=== PATIENT | female | born 1955 | race Caucasian/White ===

== ENCOUNTER 2022-01-03 09:04 | Outpatient (RCR) | payer BC, SELFPAY ==
--- NOTE | 2022-01-03 10:04 | PTOPEVAL ---
Thank you for referring Debra Arce to [facility].? The patient is scheduled to be seen for therapy? __1__x/week for 6 visits. Please review, sign, date and return this plan of care LUIS ENRIQUE. I agree with and certify that the following plan of care is medically necessary. Referring Physician Date Admitting Provider: Attending Provider: Nathalia Knapp, Referring Provider: *PT Outpatient Evaluation Start: 01/03/22 09:04 Freq: Status: Active Protocol: Document 01/03/22 09:04 LILI (Rec: 01/03/22 10:03 LILI [email or web address]) Therapy Assessment Status Assessment Status Assessment Status Evaluation Evaluation Information Problem Diagnosis left hip pain Onset 01/03/22 Subjective Information Pt. reports that she developed Query Text:As Reported By Patient/ left hip pain is about 2 Family years ago. she reports she underwent xray which revealed OA. She describes her pain around the area of the left greater trochanter and into the groin. she reports that putting her socks on is getting more difficult and has to have her help put them on. She reports that she can walk about 2 blocks before having to sit down due to pain. She denies any numbness or tingling in the leg. She states that she is able to complete all household duties, just takes more time to complete the tasks. She reports that her goal is to be able to walk further and put her socks on without assist. Pain Assessment Timing of Pain Assessment Timing of Pain Assessment Pre-Treatment Pain Scale Pain Scale Used Numeric (1 - 10) Self Report Pain Assessment Left Proximal Thigh(s) Reported Pain Level 3 Pain Description Aching Pain Frequency Continuous Lowest Pain Intensity 2 Greatest Pain Intensity 6 Pain Score Pain Score 3: Self Report Interventions Used Interventions Used By Clinicians Electrical Stimulation, Exercise,Heat Cervical and Lumbar ROM Lumbar ROM Lumbar Flexion Active Mid [place] Query Text:Hands to: Lumbar Extension (0-40) 0 Query Text:Active in Degre
--- NOTE | 2022-03-14 12:50 | PCPTNOTE ---
Mrs. Arce attended her initial evaluation on 01/03/22. She has failed to return to the clinic and will be discharged from our care.
== END 2022-01-03 15:08 | disposition home or self-care (01) ==
LOC: CHSPT 09:04
PROVIDERS: Visit Provider Orthopaedic Surgery
DX: M25.552 Pain in left hip (principal)
CPT/HCPCS: 97110; 97161

== ENCOUNTER 2023-05-01 11:04 | Outpatient (RCR) | payer BC, SELFPAY ==
--- NOTE | 2023-05-01 13:19 | OPREHPOC ---
Outpatient Therapy Plan of Care This is a Multidisciplinary Plan of Care that may contain components documented by all disciplines (PT, OT, and ST.) PT Problem 1 PT Problem #1 Knowledge Deficit PT Goal 1 Goal Patient to demonstrate independent with HEP Target Visit 6 PT Problem 2 PT Problem #2 Pain PT Goal 1 Goal 1. Patient to report highest pain at 1/10 2. Patient to report ability to complete house hold tasks with no increase in pain Target Visit 12 PT Problem 3 PT Problem #3 Impaired Range of Motion PT Goal 1 Goal Patient to demonstrate 90 deg of L hip flexion to return to stair navigation at PLOF Target Visit 12 PT Problem 4 PT Problem #4 Impaired Strength PT Goal 1 Goal Patient to demonstrate 5/5 strength of L LE to return to house hold tasks at PLOF Target Visit 12 PT Problem 5 PT Problem #5 Impaired Functional Mobil PT Goal 1 Goal 1. Patient to score 20% improvement on LEFS 2. Patient to ambulate 800' during 6 min walk test 3. Patient to report ability to don/doff shoes at PLOF Target Visit 12
--- NOTE | 2023-05-01 13:19 | PTOPEVAL1 ---
Assessment and note entered by Renee Ford DPT Evaluation Information Assessment Status Evaluation Diagnosis L hip pain Onset 04/25/23 Subjective Information Patient reports she underwent L BEATA on 04/25/23. She reports she has not had a lot of pain but does feel stiffness. 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 She reports she used a cane prior to surgery due to decreased stability at the hip. Patient reports difficulty with walking prolonged periods, stair navigation and donning/doffing shoes. She reports prior she was able to complete above activities but did have pain. Patient is retired but is independent with house hold activities. RTMD 05/09/23 Reported Pain Level Pain Score 0: Self Report Assessment PT Clinical Summary Patient is a 68 year old female who presents to PT with L hip weakness s/p L BEATA on 04/25/23. He demonstrates decreased L LE strength, impaired gait and decreased ROM of the L hip impairing her ability to ambulate prolonged periods, complete house hold tasks and don/doff socks and shoes. She would benefit from skilled PT to address impairments and return to PLOF. Plan of Care Interventions Electrical Stimulation,Gait Training,Hot Pack/Cold Pack,Manual Therapy,Neuro Re-education,Patient/ Caregiver Educati,Therapeutic Activities, Therapeutic Exercise PT Services Indicated Yes Treatment Frequency and 2x weekly for 12 visits Duration These treatments will address the objective and functional deficits as defined above. The patient will be advanced safely and appropriately in order for the patient to progress towards his/her prior level of function. Additional exercises will be introduced and as well as a comprehensive home exercise program upon discharge, if needed, ?to ensure carryover of functional gains achieved in the clinic. This treatment plan has been reviewed and agreement upon by the patient.
--- NOTE | 2023-06-07 14:20 | PCPTNOTE ---
Patient no showed and no called
--- NOTE | 2023-08-17 08:47 | PCPTNOTE ---
patient discharged due to time since last visit
== END 2023-05-17 20:00 | disposition home or self-care (01) ==
LOC: CHSPT 11:04
DX: Z47.1 Aftercare following joint replacement surgery (principal); Z96.642 Presence of left artificial hip joint
CPT/HCPCS: 97110; 97161